=== PATIENT | female | born 1980 | race Hispanic/Latino ===

== ENCOUNTER 2020-06-04 15:35 | Inpatient (IN) | payer SELFPAY ==
[~2020-06-04] VITALS: Ht 157.5 cm; Wt 80.7 kg
[2020-06-04] MEDS ORDERED: ONDANSETRON HCL 4 MG/2 ML VIAL ONE ×2 (15:56→20:38)
[2020-06-04] MEDS ORDERED: KETOROLAC TROMETHAMINE 30MG/ML ONE (15:57)
[2020-06-04] MEDS ORDERED: DICYCLOMINE HCL 10 MG/ML 2ML AMP IM ONE (15:57)
[2020-06-04 16:27] LABS: BASOPHILS % (AUTO) 0.4 % (0.0-5.0); EOSINOPHILS % (AUTO) 0.1 % (0.0-8.0); HEMATOCRIT 32.5 % (36-48); LYMPHOCYTES % (AUTO) 15.6 % (21.0-51.0); MEAN CORPUSCULAR HGB CONC 31.7 g/dL (32.0-36.0); MEAN CORPUSCULAR VOLUME 82.1 fL (79-99); MONOCYTES % (AUTO) 5.4 % (3.0-13.0); NEUTROPHILS % (AUTO) 78.2 % (40.0-77.0); PLATELET COUNT (AUTO) 306 K/uL (130-400); RED BLOOD CELL COUNT(AUTO) 3.96 MIL/uL (4.00-5.50); RED CELL DISTRIBUTION WIDTH 15.4 % (11.0-15.5); WHITE BLOOD COUNT (AUTO) 9.3 K/uL (4.8-10.8)
[2020-06-04 16:38] LABS: INR 0.84 (0.85-1.15); PARTIAL THROMBOPLASTIN TIME 26.6 SEC (26.3-35.5); PROTHROMBIN TIME 9.1 SEC (9.6-11.6)
[2020-06-04 16:40] LABS: APPEARANCE,URINE CLEAR (CLEAR); BILIRUBIN,URINE NEGATIVE (NEGATIVE); COLOR,URINE YELLOW (YELLOW); GLUCOSE, URINE (UA) 250 mg/dL (NEGATIVE); KETONES,URINE 5 mg/dL (NEGATIVE); LEUKOCYTE ESTERASE ,URINE TRACE (NEGATIVE); NITRATE,URINE NEGATIVE (NEGATIVE); OCCULT BLOOD,URINE NEGATIVE (NEGATIVE); PROTEIN,URINE TRACE mg/dL (NEGATIVE); UROBILINOGEN,URINE 0.2 mg/dL (0.2-1.0)
[2020-06-04 16:47] LABS: BACTERIA,URINE Few /HPF (None Seen); MUCUS,URINE Few LPF (None Seen); RBC,URINE 0-1 /HPF (0-1); SQUAMOUS EPITHELIAL CELL,UR Few /HPF (0-2)
[2020-06-04 17:09] LABS: CREATININE 0.8 mg/dL (0.5-1.5); POTASSIUM 3.9 mmol/L (3.5-5.1)
[2020-06-04 17:15] LABS: ALBUMIN 3.7 g/dL (3.5-5.0); BILIRUBIN,TOTAL 0.6 mg/dL (0.2-1.0); TOTAL PROTEIN, SERUM 7.9 g/dL (6.0-8.3)
[2020-06-04] MEDS ORDERED: IOHEXOL-350 75 ML VIAL IV ONE (18:09)
[2020-06-04] MEDS ORDERED: ACETAMINOPHEN EXTRA STRENGTH 500 MG TABLET ONE (20:09)
[2020-06-04] MEDS ORDERED: MORPHINE SULFATE 4 MG/1ML SYG ONE (20:39)
[2020-06-04] MEDS ORDERED: ZOSYN 3.375GM+NS 50ML 50 ML IV ONE (20:44)
[2020-06-05] VITALS (7 sets, daily range): BP systolic 99–139; BP diastolic 55–75
[2020-06-05] MEDS ORDERED: LACTATED RINGERS 1000ML 1,000 ML IV ONE (00:53)
--- NOTE | 2020-06-05 01:00 | NUR ---
Pt in bed, oriented to room, bed, nurse call button & instructing on use of call button to call for assistance to bathroom; non skid slippers on & informing of fall risk, encouraging to call for any concerns or assistance; pt voices understanding & agrees to plan. Informing of planned interview then will call md for further orders. Pt agrees to plan and assessment.
--- NOTE | 2020-06-05 01:30 | NUR ---
Pt a/a/o x 3, reports discomfort to abd at right mid & lower quad of abdomen describing discomfort as cramping & fullness or bloating, rating discomfort at 5/10; Informing will continue interview & assessment & report to md for further orders. Pt agrees to plan. Pt moving all extremities well, steady gait noted; no edema noted or verbalized; mucus membranes pink & moist; pt calm, no guarding or rigidity noted; abdomen palpated soft slightly distended with tenderness during palpation; bowel sounds present & hypoactive to right & left lower quadrant, denies n/v at present, reports vomiting x 4 during the day & chronic constipation for the past month; denies urinary frequency or discomfort, states "it just feels like a fullness in my bladder and my abdomen" ([place]oz[place]); denies vaginal discharge or discomfort, reports LMP 05/12/2020, normally lasting 5-8days every 28-30 days, and present IUD in place for past 15 years without problems noted, reports last pap 3 years ago & history of abn pap 2001, treated; Respirations 24, unlabored & regular, breath sounds clear slightly diminished to lower lobes bilaterally, denies SOB or cough, reports history of seasonal asthma & bronchitis exacerbated by cold weather; denies neuro-muscular problems; reports slight knee joint discomfort during cold weather. Explaining md order for Zosyn to continue q 8 hours & is due at 0500. Pt agrees to plan.
[2020-06-05] MEDS ORDERED: LAXATIVE POWDER PO (02:31)
[2020-06-05] MEDS ORDERED: METF-446 PO (02:31)
[2020-06-05] MEDS ORDERED: NAPR-1000 PO (02:31)
[2020-06-05] MEDS ORDERED: CHOLESTEROL MED PO (02:31)
[2020-06-05] MEDS ORDERED: HYPERTENSIVE MED PO (02:31)
--- NOTE | 2020-06-05 02:50 | NUR ---
Dr Florez returning 0237 page. Notified of pt current status, abdominal pain continues @02/13, reports feeling bloating/fullness; constipation for past month & current blood glucose 207 via finger stick with pt hx of Type II DM on metformin po bid. Orders received for IV LR@125ml/hr, NPO, Demerol/Phenergan IM q 4 hours, & Sliding Scale I with blood sugars every 6 hours.
[2020-06-05] MEDS ORDERED: PROMETHAZINE HCL 25 MG/ML 1ML AMPULE IM PRN (03:00)
[2020-06-05] MEDS ORDERED: MEPERIDINE-PF 50 MG/ML SYG IM PRN (03:00)
[2020-06-05] MEDS: LACTATED RINGERS 1000ML 1,000 ML IV SCH ×2 (03:00→18:19)
--- NOTE | 2020-06-05 03:11 | NUR ---
Explaining md order for pain med iv, informing of desired effects & possible common side effects of narcotic, informing of planned blood glucose checks every 6 hours with treatment of high levels with insulin sub q, pt voices understanding & agrees to plan and medication administration. Addendum: 06/05/20 at 0313 by GERSON BOWEN RN RN Amended: Links added.
[2020-06-05] MEDS ORDERED: MEPERIDINE-PF 50 MG/ML SYG ONE (03:21)
[2020-06-05] MEDS ORDERED: INSULIN HUMULIN R 100 UNIT/ML 3ML ONE (03:24)
--- NOTE | 2020-06-05 03:35 | NUR ---
Reinforcing teaching on Demerol/Phenergan IM for discomfort & Regular Insulin subcutaneous for blood sugar of 207; pt voices understanding & agrees to med adm. Requesting to void & assisting to bathroom.
--- NOTE | 2020-06-05 03:45 | NUR ---
Reinforcing teaching on narcotic desired effect & possible common side effect of drowsiness, encouraging to call for assistance to bathroom due to side effects, pt agrees. Call button within reach on bed, bed down & side rails up x 2; IV pump at bedside, site without redness or edema.
[2020-06-05] MEDS ORDERED: ZOSYN 3.375GM+NS 50ML 50 ML IV ONE (04:15)
--- NOTE | 2020-06-05 04:30 | NUR ---
Pt reports discomfort to abd is less, rating it 4/10. Reports emesis, bile colored emesis noted on bed & overbed table; pt out of bed to bathroom, bed linen changed & table cleaned. [place] removed from bed & replacing flat sheet, pt returning to bed, informed of temp of 100.7, encouraging to avoid blanket, to keep flat sheet, will re assess temp in one hour, pt voices understanding & agrees to plan.
--- NOTE | 2020-06-05 04:40 | NUR ---
Reinforcing teaching on Zosyn as per orders for infection; pt voices understanding & agrees to med adm.
[2020-06-05] MEDS: INSULIN HUMULIN R 100 UNIT/ML 3ML SQ SCH ×4 (06:00→21:09)
--- NOTE | 2020-06-05 06:00 | NUR ---
Dr Florez notified of pt current temp of 100.6 after removing blankets; Order received for Tylenol ES 1 gm now.
[2020-06-05] MEDS ORDERED: ACETAMINOPHEN EXTRA STRENGTH 500 MG TABLET ONE (06:05)
--- NOTE | 2020-06-05 06:15 | NUR ---
Tylenol 1gm given po for 100.6 temp as per md orders. Explaining Tylenol, pt voices understanding & agrees to med adm. Addendum: 06/05/20 at 0636 by GERSON BOWEN RN RN Amended: Links added.
[2020-06-05] MEDS ORDERED: GENTAMICIN SULFATE 120 MG in SODIUM CHLORIDE 0.9% 100 ML IV SCH (08:45)
--- NOTE | 2020-06-05 08:45 | NUR ---
DR TROY CALLED TO RECEIVE UPDATE ON PT. INFORMED THAT TYLENOL 1 GRAM PO WAS ADMINISTERED ORDERED AT 0615. ORAL TEMP AT 0723 WAS 100.6. INFORMED OF PAIN SCALE AT 4 AND THAT PT DENIES NEED FOR PAIN MEDICATION DURING ASSESSMENT. ORDERS RECEIVED TO CANCEL ZOSYN ORDER AND START CLINDAMYCIN AND GENTAMICIN DIRECTED. ORDERS RECEIVED FOR COVID TEST. ORDERS READ BACK AND CORRECT.
[2020-06-05] MEDS: CLINDAMYCIN 900 MG/D5% WATER 50 ML IV SCH ×2 (09:35→16:38)
[2020-06-05] MEDS: GENTAMICIN 80 MG/NS 100 ML PB 100 ML IV SCH ×2 (09:36→18:17)
--- NOTE | 2020-06-05 09:40 | NUR ---
TEACHING GIVEN ON DR TROY'S ORDERS FOR ANTIBIOTICS AND FOR COVID TESTING. PT INFORMED THAT COVID TESTING IS PERFORMED ON PTS WITH COVID SYMPTOMS INCLUDING FEVER. PT VERBALLY CONSENTS TO COVID TESTING. PT DENIES QUESTIONS AT THIS TIME. PT TOLERATED NASAL SWAB WELL. NO S/S OF DISTRESS AT THIS TIME. NO COUGH PRESENT AT THIS TIME. PT DENIES SOB. WILL CONTINUE TO MONITOR.
--- NOTE | 2020-06-05 10:29 | NUR ---
DR TROY CALLED TO INFORM THAT SHE IS ON HER WAY TO HAVE PT SET UP FOR BEDSIDE REMOVAL OF IUD. ORDERS READ BACK AND CORRECT. DR TROY INFORMED THAT RAPID COVID TEST WAS NEGATIVE. PROVIDER VERBALIZED UNDERSTANDING.
--- NOTE | 2020-06-05 11:05 | NUR ---
PT ASSISTED FROM ROOM 111 TO RM 106 VIA AMBULATING FOR REMOVED OF IUD. PT DENIES FEELING DIZZY OR FAINT. PT ACCOMPANIED BY NURSE. ALL BELONGINGS REMAIN IN RM 111. PT TOLERATED TRANSPORT WELL. NO S/S OF DISTRESS. OCCASIONAL COUGH NOTED. PT REPORTS MILD COUGH DUE TO HER RM BEING COLD. WILL CONTINUE TO MONITOR.
--- NOTE | 2020-06-05 11:10 | NUR ---
SWISS CONSENTS SIGNED FOR REMOVAL OF IUD. ALL FORMS EXPLAINED TO PT. ALL QUESTIONS ANSWERED.
--- NOTE | 2020-06-05 11:15 | NUR ---
DR TROY AT BEDSIDE TO ASSESS PT. PT INFORMED OF PROCEDURE TO REMOVE IUD DUE TO ABDOMINAL PAIN AND UTERINE ABSCESS NOTED. PT VERBALIZED UNDERSTANDING. ALL QUESTIONS ANSWERED. PROCEDURE PERFORMED OF DR. TROY. Dino MCCABE RN AND AMOS LANDON, STERILE PROCESS COORDINATOR AT BEDSIDE. PT TOLERATED INTERVENTION WELL. NO S/S OF DISTRESS NOTED. PROCEDURE COMPLETE. PT ASSISTED BACK TO RM 111.
--- NOTE | 2020-06-05 11:28 | NUR ---
PT ASSISTED TO RM 111. LUNCH TRAY GIVEN. CALL LIGHT IN REACH. NO S/S OF DISTRESS
[2020-06-05] MEDS ORDERED: ACETAMINOPHEN-CODEINE 300/30MG TAB PO PRN (11:45)
[2020-06-05] MEDS ORDERED: ZOSYN 3.375GM+NS 50ML 50 ML IV SCH (12:00)
[2020-06-05] MEDS: METFORMIN HCL 500 MG TABLET PO SCH (16:38)
[2020-06-05] MEDS: ACETAMINOPHEN EXTRA STRENGTH 500 MG TABLET PO PRN ×3 (17:17→23:44)
--- NOTE | 2020-06-05 18:17 | NUR ---
INITIAL: Spoke w pt via phone. Prior to admission pt was living w a friend. She is independent w ambulation and ADLs. Does not own any DME or receive services. Per pt she plans to return back home to her prior living arrangements. She mentions that her landlord David Canela will be able to provide transportation home. She mentions if needed her cousin Zena Lees [phone] will be able to assist her. DCP for home. CM to continue to follow and wait for Md recommendations. Addendum: 06/05/20 at 1820 by KUNAL KENDALL CM Amended: Links added.
--- NOTE | 2020-06-05 19:30 | NUR ---
PATIENT RECEIVED; Patient awake alert when received with IV of LR at 125 ml/hour infusing well.Plan of care discussed with patient, she verbalizes understanding.
--- NOTE | 2020-06-05 20:25 | NUR ---
Communication: Dr. Florez asked if she wants Gentamycin peak & trough, she claimed just follow Pharmacy Protocol.
--- NOTE | 2020-06-05 20:30 | NUR ---
Communication: Dr. Florez informed of patient Temperature of 103.2 at 1625 and 100.5 at 1820 and 98.7 at 1930. she asked if Blood Culture was done. She was informed that it was done.
--- NOTE | 2020-06-05 21:15 | NUR ---
Dr. Florez: Dr. Florez informed of the Blood Culture result within 24 hours with no growth she verbalized to draw another Blood Culture if patient temperature spikes again.
--- NOTE | 2020-06-05 23:44 | NUR ---
Patient; Patient claimed. [place]." Temperature checked 101.7, Cold packs applied to Forehead cold towels applied to both axilla. Patient advice to drink more fluids and uncover herself.
--- NOTE | 2020-06-06 00:30 | NUR ---
FAN BLADE ALIGNER; FAN BLADE ALIGNER at bedside to draw blood for blood culture.
[2020-06-06] MEDS: CLINDAMYCIN 900 MG/D5% WATER 50 ML IV SCH ×4 (00:33→20:22)
--- NOTE | 2020-06-06 01:25 | NUR ---
Patient; Patient transferred to room 118 via wheelchair a room with negative pressure. Patient informed and she verbalizes understanding.
[2020-06-06] MEDS: GENTAMICIN 80 MG/NS 100 ML PB 100 ML IV SCH ×3 (02:32→17:35)
[2020-06-06 03:55] VITALS: BP 104/66
[2020-06-06] MEDS: LACTATED RINGERS 1000ML 1,000 ML IV SCH ×3 (06:11→19:00)
--- NOTE | 2020-06-06 07:45 | NUR ---
ASSESSMENT: RECEIVED UP TO BR AND VOIDED LG AMTS OF URINE. DENIES PAIN OR DISCOMFORT WITH URINATION. EXPLAINED POC AND UNDERSTANDING VERBALIZED. PT IN ISOLATION PENDING HART VIRUS PCR RESULTS. ANTIGEN NEGATIVE. PT HART POSITIVE IN MARCH. NOTED DRY COUGH. DENIES RESP DIFFICULTY, NO SOB NOTED. CALL WHITNEY AT HER SIDE.
[2020-06-06] MEDS: METFORMIN HCL 500 MG TABLET PO SCH ×2 (07:46→16:22)
[2020-06-06 08:00] VITALS: BP 119/67
--- NOTE | 2020-06-06 08:28 | NUR ---
FEVER: T 101.5, MEDICATED WITH MOTRIN 800MG PO, NATALIE WELL. UP IN CHAIR EATING 1800 ADA DIET
[2020-06-06] MEDS: IBUPROFEN 800 MG TAB PO PRN ×2 (08:29→20:24)
--- NOTE | 2020-06-06 09:06 | NUR ---
HYGEINE: TAKING SHOWER
--- NOTE | 2020-06-06 10:00 | NUR ---
ACTIVITY: UN IN CHAIR, NO COUGH NOTED. STATES FEELS MUCH BETTER. DENIES ABD PAIN.
--- NOTE | 2020-06-06 10:16 | NUR ---
SW unable to meet w/pt. Low Income Packet provided to RN for pt. as requested by weekend CM.
[2020-06-06 11:23] VITALS: BP 111/68
[2020-06-06] MEDS: INSULIN HUMULIN R 100 UNIT/ML 3ML SQ SCH ×3 (11:32→20:17)
--- NOTE | 2020-06-06 12:48 | NUR ---
nutrition: NATALIE 100% OF LUNCH
--- NOTE | 2020-06-06 15:00 | NUR ---
ELIMINATION: PT STATES VOIDING FREQUENTLY AND HAVING SM AMTS OF SOFT BM'S.
[2020-06-06 15:02] VITALS: BP 114/63
--- NOTE | 2020-06-06 15:07 | NUR ---
ACTIVITY: AMB IN ROOM, NOTED VERY LITTLE COUGHING THIS PM, PT STATES SHE COUGHS MOSTLY IN THE MORNINGS AND WHEN SHE GETS COLD.
--- NOTE | 2020-06-06 16:54 | NUR ---
rest: resting in bed.
--- NOTE | 2020-06-06 18:03 | NUR ---
ACTIVITY: AMB IN ROOM, TALKATIVE AND CHEERFUL.
--- NOTE | 2020-06-06 19:21 | NUR ---
REPORT: REPORT GIVEN TO Dave SHARPE RN.
--- NOTE | 2020-06-06 19:30 | NUR ---
Shift Change Pt was seen standing beside the bed during rounds. Verbalized she just got out from the restroom and she's been having frequency of urination. Denies any feeling of discomfort. Still with PIV site to left hand #20g with an IVF of LR 1L at 125 ml/hr via infusion pump.No apparent distress noted.
[2020-06-06 19:50] VITALS: BP 131/76
--- NOTE | 2020-06-06 20:24 | NUR ---
TEMP: 101.9 per oral Motrin 800 mg po q8h prn for fever as ordered given. Room temp adjusted from 76F to approx 72F per pt request. Distress not noted.
--- NOTE | 2020-06-06 21:25 | NUR ---
Temp rechecked: 101.3 Pt was sitting at the chair watching TV. Offered cold packs to for comfort. Room temp at this time is at 76F still, though its been adjusted already at 1950. Pt wants AC at 72F. Pt assisted to lie down in bed before machine sign writer left the room. Distress /discomfort not noted.
[2020-06-06 23:45] VITALS: BP 106/59
--- NOTE | 2020-06-06 23:45 | NUR ---
Routine VS checked done Patient was asleep , but woke up with VS monitoring. Temp at this time was 98.3, oral. Room temp was 75F. Noticed she was not using the thin blanket anymore. Verbalized room still hot. Was told that engineering dept will be informed in AM. Distress not noted. Needs attended.
[2020-06-07] MEDS: GENTAMICIN 80 MG/NS 100 ML PB 100 ML IV SCH ×3 (01:36→17:46)
[2020-06-07] MEDS: LACTATED RINGERS 1000ML 1,000 ML IV SCH (03:30)
[2020-06-07 03:40] VITALS: BP 106/69
--- NOTE | 2020-06-07 04:00 | NUR ---
PT ASLEEP AND RESTING COMFORTABLY.
--- NOTE | 2020-06-07 06:00 | NUR ---
Pt. fully awake and at the restroom defecating. BS checked with a result of 128 mg/dl.
[2020-06-07] MEDS: INSULIN HUMULIN R 100 UNIT/ML 3ML SQ SCH ×4 (06:03→22:29)
--- NOTE | 2020-06-07 06:10 | NUR ---
Temp rechecked: 98 F per oral. Denies feeling of discomfort. NAD.
[2020-06-07] MEDS: METFORMIN HCL 500 MG TABLET PO SCH (07:55)
[2020-06-07] MEDS: CLINDAMYCIN 900 MG/D5% WATER 50 ML IV SCH ×3 (07:56→21:42)
[2020-06-07 08:10] VITALS: BP 122/77
[2020-06-07] MEDS: ACETAMINOPHEN EXTRA STRENGTH 500 MG TABLET PO PRN ×2 (10:58→18:35)
[2020-06-07 11:45] VITALS: BP 126/82
[2020-06-07 11:47] LABS: MEAN CORPUSCULAR HEMOGLOBIN 26.2 pg (27.0-33.0); MEAN CORPUSCULAR HGB CONC 31.5 g/dL (32.0-36.0); MEAN CORPUSCULAR VOLUME 83.1 fL (79-99); RED BLOOD CELL COUNT(AUTO) 3.13 MIL/uL (4.00-5.50); RED CELL DISTRIBUTION WIDTH 15.7 % (11.0-15.5); WHITE BLOOD COUNT (AUTO) 9.9 K/uL (4.8-10.8)
[2020-06-07 11:59] LABS: HEMOGLOBIN A1C 9.7 % (4.0-6.0)
[2020-06-07] MEDS ORDERED: BISACODYL 10 MG SUPP.RECT RC ONE (12:12)
[2020-06-07] MEDS: DOCUSATE SODIUM 100 MG CAP PO SCH ×2 (14:39→21:42)
[2020-06-07] MEDS ORDERED: LACTULOSE 20 GM/30 ML UDCUP PO PRN (16:45)
[2020-06-07 18:15] VITALS: BP 133/78
[2020-06-07 20:00] VITALS: BP 122/72
[2020-06-07] MEDS ORDERED: INSULIN GLARGINE 100 UNITS/ML 10 ML VIAL SQ SCH (21:00)
[2020-06-07] MEDS: INSULIN GLARGINE 100 UNITS/ML 10 ML VIAL SQ SCH (21:44)
[2020-06-07 23:40] VITALS: BP 129/79
[2020-06-08] MEDS: GENTAMICIN 80 MG/NS 100 ML PB 100 ML IV SCH ×2 (01:59→10:35)
[2020-06-08] MEDS: BISACODYL 10 MG SUPP.RECT RC PRN ×2 (01:59→18:53)
[2020-06-08 04:10] VITALS: BP 132/82
[2020-06-08] MEDS: IBUPROFEN 800 MG TAB PO PRN ×2 (04:46→20:59)
[2020-06-08 04:48] LABS: BASOPHILS % (AUTO) 0.2 % (0.0-5.0); EOSINOPHILS % (AUTO) 0.7 % (0.0-8.0); HEMATOCRIT 24.6 % (36-48); LYMPHOCYTES % (AUTO) 11.2 % (21.0-51.0); MEAN CORPUSCULAR HEMOGLOBIN 26.2 pg (27.0-33.0); MEAN CORPUSCULAR HGB CONC 31.7 g/dL (32.0-36.0); MEAN CORPUSCULAR VOLUME 82.6 fL (79-99); NEUTROPHILS % (AUTO) 81.4 % (40.0-77.0); PLATELET COUNT (AUTO) 299 K/uL (130-400); RED BLOOD CELL COUNT(AUTO) 2.98 MIL/uL (4.00-5.50); RED CELL DISTRIBUTION WIDTH 15.6 % (11.0-15.5); WHITE BLOOD COUNT (AUTO) 9.2 K/uL (4.8-10.8)
[2020-06-08 04:53] LABS: CREATININE 0.7 mg/dL (0.5-1.5); POTASSIUM 3.4 mmol/L (3.5-5.1)
--- NOTE | 2020-06-08 07:50 | NUR ---
OUT OF [employer]OL HOURS CARE WORKER CONSULT DR. ROSS AT BEDSIDE TO OBSERVE PT'S BLOOD SUGARS. STATED HE WOULD MAKE CHANGES TO MEDS IF NEEDED
[2020-06-08] MEDS: DOCUSATE SODIUM 100 MG CAP PO SCH ×2 (08:20→20:59)
[2020-06-08] MEDS: CLINDAMYCIN 900 MG/D5% WATER 50 ML IV SCH (08:20)
[2020-06-08] MEDS: INSULIN HUMULIN R 100 UNIT/ML 3ML SQ SCH ×7 (08:21→21:04)
[2020-06-08 08:40] VITALS: BP 136/82
--- NOTE | 2020-06-08 08:45 | NUR ---
MARIXA ROUNDING DR. TROY HERE TO SEE PT STATUS. NEW ORDERS RECEIVED
--- NOTE | 2020-06-08 09:24 | NUR ---
ID CONSULT DR. CRUZ INFORMED OF CONSULT. PT PLACED ON HIS CENSUS
--- NOTE | 2020-06-08 10:55 | NUR ---
ID CONSULT ROUNDING DR. CRUZ AT BEDSIDE TO ASSESS AND TALK TO PT.
[2020-06-08 12:15] VITALS: BP 114/72
[2020-06-08] MEDS: CEFTRIAXONE SODIUM 2 GM VIAL IVP SCH (13:00)
[2020-06-08] MEDS: LACTATED RINGERS 1000ML 1,000 ML IV SCH (14:00)
[2020-06-08] MEDS: METRONIDAZOLE 500MG/100ML BAG 100 ML IV SCH ×2 (14:15→21:28)
[2020-06-08 16:15] VITALS: BP 128/68
[2020-06-08] MEDS ORDERED: CLINDAMYCIN 900 MG/D5% WATER 50 ML IV SCH (17:00)
[2020-06-08 20:15] VITALS: BP 135/70
[2020-06-08] MEDS: INSULIN GLARGINE 100 UNITS/ML 10 ML VIAL SQ SCH (21:02)
[2020-06-09 00:10] VITALS: BP 123/69
[2020-06-09 04:10] VITALS: BP 110/69
[2020-06-09] MEDS: METRONIDAZOLE 500MG/100ML BAG 100 ML IV SCH ×3 (05:58→22:02)
[2020-06-09] MEDS: LACTATED RINGERS 1000ML 1,000 ML IV SCH ×2 (05:58→19:46)
[2020-06-09] MEDS: INSULIN HUMULIN R 100 UNIT/ML 3ML SQ SCH ×7 (07:30→21:00)
--- NOTE | 2020-06-09 08:10 | NUR ---
DR. ROSS AT BEDSIDE TO ASSESS AND TALK TO PT. NEW ORDERS RECEIVED FOR INSULIN CHANGES.
[2020-06-09] MEDS: DOCUSATE SODIUM 100 MG CAP PO SCH ×2 (08:22→21:10)
[2020-06-09 08:30] VITALS: BP 134/76
[2020-06-09] MEDS: CEFTRIAXONE SODIUM 2 GM VIAL IVP SCH (12:49)
[2020-06-09 13:00] VITALS: BP 139/76
--- NOTE | 2020-06-09 13:13 | NUR ---
RE: TUBAL OVARIAN ABSCESS DRAINAGE IMAGES REVIEWED BY DR Heide HERNÁNDEZ. MINIMAL FLUID SEEN FOR DRAINAGE. AREA OF INTEREST LOOKS SOLID BUT DIFFICULT TO BIOPSY PERCUTANEOUSLY BY RADIOLOGIST. CANCEL PROCEDURE BY RADIOLOGY. PROCEDURE OUTCOME REPORTED TO Jesus PIERCE RN.
[2020-06-09] MEDS ORDERED: MAGNESIUM CITRATE 296 ML SOLUTION PO SCH (13:30)
[2020-06-09] MEDS ORDERED: VANCOMYCIN PROTOCOL PER PHARMACY IV SCH (13:30)
[2020-06-09] MEDS: IBUPROFEN 800 MG TAB PO PRN (13:45)
[2020-06-09 14:30] VITALS: BP_SYST 132; BP_DIAS 80; BP_DIAS 85
[2020-06-09] MEDS: UNASYN 3GM+NS 100ML 100 ML IV SCH ×2 (14:57→19:45)
[2020-06-09] MEDS: VANCOMYCIN 1GM+NS 250ML 250 ML IV SCH (15:50)
--- NOTE | 2020-06-09 16:30 | NUR ---
DR. TROY AT BEDSIDE TO ASSESS AND TALK TO PT. POC DISCUSSED FOR SURGERY IN THE MORNING. PT'S QUESTIONS ANSWERED AND VERBALIZED UNDERSTANDING.
[2020-06-09 20:14] VITALS: BP 135/97
--- NOTE | 2020-06-09 20:14 | NUR ---
Activity: Patient sitting at bedside chair, no complaints of pain, Plan of care discussed she verbalizes understanding. IV of LR infusing at 125 ml/hour. Advice to call if needed.
[2020-06-09] MEDS ORDERED: INSULIN GLARGINE 100 UNITS/ML 10 ML VIAL SQ SCH (21:00)
--- NOTE | 2020-06-09 21:30 | NUR ---
Fleets enema given.
[2020-06-09] MEDS: INSULIN GLARGINE 100 UNITS/ML 10 ML VIAL SQ SCH (21:34)
[2020-06-10] VITALS (26 sets, daily range): BP systolic 114–149; BP diastolic 67–82
[2020-06-10] MEDS: UNASYN 3GM+NS 100ML 100 ML IV SCH ×4 (01:21→19:58)
[2020-06-10] MEDS: VANCOMYCIN 1GM+NS 250ML 250 ML IV SCH ×2 (02:23→15:03)
--- NOTE | 2020-06-10 04:30 | NUR ---
FLEETS; Fleets enema administered per rectum with small residue of Bowel movement light yellow in color.
[2020-06-10 04:31] LABS: HEMATOCRIT 28.5 % (36-48); MEAN CORPUSCULAR HEMOGLOBIN 25.9 pg (27.0-33.0); MEAN CORPUSCULAR HGB CONC 31.6 g/dL (32.0-36.0); MEAN CORPUSCULAR VOLUME 81.9 fL (79-99); RED BLOOD CELL COUNT(AUTO) 3.48 MIL/uL (4.00-5.50); RED CELL DISTRIBUTION WIDTH 15.8 % (11.0-15.5)
[2020-06-10 05:05] LABS: ALBUMIN 2.7 g/dL (3.5-5.0); BILIRUBIN,TOTAL 0.4 mg/dL (0.2-1.0); CREATININE 0.9 mg/dL (0.5-1.5); POTASSIUM 3.9 mmol/L (3.5-5.1); TOTAL PROTEIN, SERUM 7.7 g/dL (6.0-8.3)
[2020-06-10] MEDS: METRONIDAZOLE 500MG/100ML BAG 100 ML IV SCH ×3 (05:37→21:55)
--- NOTE | 2020-06-10 07:08 | NUR ---
Dr. Florez; Dr. Florez at bedside talk to patient POC before she was wheeled via bed to OR accompanied by 2 OR nurses.
[2020-06-10] MEDS ORDERED: SUCCINYLCHOLINE CHLORIDE 20 MG/ML 10 ML VIAL ONE (07:16)
[2020-06-10] MEDS ORDERED: PROPOFOL 10 MG/ML 20ML VIAL IV ONE (07:16)
[2020-06-10] MEDS ORDERED: LIDOCAINE PF 2% 5ML ABBOJECT ONE (07:16)
[2020-06-10] MEDS ORDERED: FENTANYL CITRATE PF 50 MCG/1 ML 2ML VIAL ONE (07:16)
[2020-06-10] MEDS ORDERED: MIDAZOLAM HCL 1 MG/ML 2ML VIAL ONE (07:26)
[2020-06-10] MEDS ORDERED: ROCURONIUM 10MG/1ML SYR 10 MG/ML ML ONE (07:26)
[2020-06-10] MEDS: INSULIN HUMULIN R 100 UNIT/ML 3ML SQ SCH ×10 (07:30→22:34)
[2020-06-10] MEDS ORDERED: NEOSTIGMINE 5MG/5ML SYR IV ONE (07:35)
[2020-06-10] MEDS ORDERED: GLYCOPYRROLATE 1 MG/5 ML SYRINGE ONE (07:35)
[2020-06-10] MEDS ORDERED: ONDANSETRON HCL 4 MG/2 ML VIAL ONE (07:35)
[2020-06-10] MEDS ORDERED: MEPERIDINE-PF 25 MG/ML SYG ONE ×2 (08:55→09:02)
[2020-06-10] MEDS: DOCUSATE SODIUM 100 MG CAP PO SCH ×2 (09:00→19:53)
[2020-06-10] MEDS ORDERED: DOCUSATE SODIUM 100 MG CAP PO PRN (10:15)
[2020-06-10] MEDS ORDERED: IBUPROFEN 600 MG TABLET PO PRN (10:15)
[2020-06-10] MEDS ORDERED: MEPERIDINE-PF 75 MG/ML SYG IM PRN (10:15)
[2020-06-10] MEDS ORDERED: BISACODYL 10 MG SUPP.RECT RC PRN (10:15)
[2020-06-10] MEDS ORDERED: PROMETHAZINE HCL 25 MG/ML 1ML AMPULE IM PRN ×2 (10:15)
[2020-06-10] MEDS ORDERED: ONDANSETRON HCL 4 MG/2 ML VIAL IV PRN (10:15)
[2020-06-10] MEDS ORDERED: ONDANSETRON HCL 4 MG/2 ML VIAL IVP PRN (10:15)
[2020-06-10] MEDS ORDERED: NALOXONE HCL 0.4 MG/1 ML ML IVP PRN (10:15)
[2020-06-10] MEDS ORDERED: MORPHINE-NS 50 MG/50 ML 50 ML IV PRN (10:15)
[2020-06-10] MEDS ORDERED: DIPHENHYDRAMINE HCL 25 MG CAPSULE PO PRN (10:15)
[2020-06-10] MEDS ORDERED: DiphenhydrAMINE HCL 50 MG/ML VIAL IV PRN (10:15)
[2020-06-10] MEDS ORDERED: ACETAMINOPHEN-CODEINE 300/30MG TAB PO PRN (10:15)
[2020-06-10] MEDS: LACTATED RINGERS 1000ML 1,000 ML IV SCH ×4 (10:20→22:32)
[2020-06-10] MEDS ORDERED: DEXTROSE 50%-WATER 50 ML DISP.SYRIN IV PRN (11:45)
[2020-06-10] MEDS ORDERED: GLUCAGON 1MG KIT 1 MG ML IM PRN (11:45)
--- NOTE | 2020-06-10 13:10 | NUR ---
Dr. Collins in to see pt, no new orders received.
[2020-06-10] MEDS: INSULIN GLARGINE 100 UNITS/ML 10 ML VIAL SQ SCH (21:00)
[2020-06-10] MEDS: ACETAMINOPHEN EXTRA STRENGTH 500 MG TABLET PO PRN (21:03)
[2020-06-11] VITALS (7 sets, daily range): BP systolic 99–144; BP diastolic 54–86
[2020-06-11] MEDS: UNASYN 3GM+NS 100ML 100 ML IV SCH ×4 (01:57→19:54)
--- NOTE | 2020-06-11 03:00 | NUR ---
ELIZABETH MATIAS DRAWN BY LAB WITH AM LABS.PT. RESTING QUIETLY.
[2020-06-11] MEDS: VANCOMYCIN 1GM+NS 250ML 250 ML IV SCH (03:01)
[2020-06-11 03:16] LABS: BASOPHILS % (AUTO) 0.2 % (0.0-5.0); EOSINOPHILS % (AUTO) 0.3 % (0.0-8.0); LYMPHOCYTES % (AUTO) 13.5 % (21.0-51.0); MEAN CORPUSCULAR HEMOGLOBIN 26.1 pg (27.0-33.0); MEAN CORPUSCULAR HGB CONC 31.7 g/dL (32.0-36.0); MEAN CORPUSCULAR VOLUME 82.2 fL (79-99); MONOCYTES % (AUTO) 4.5 % (3.0-13.0); NEUTROPHILS % (AUTO) 80.8 % (40.0-77.0); PLATELET COUNT (AUTO) 488 K/uL (130-400); RED BLOOD CELL COUNT(AUTO) 3.53 MIL/uL (4.00-5.50); RED CELL DISTRIBUTION WIDTH 15.9 % (11.0-15.5); WHITE BLOOD COUNT (AUTO) 11.1 K/uL (4.8-10.8)
[2020-06-11 03:30] LABS: ALBUMIN 2.3 g/dL (3.5-5.0); BILIRUBIN,TOTAL 0.5 mg/dL (0.2-1.0); CREATININE 0.8 mg/dL (0.5-1.5)
--- NOTE | 2020-06-11 04:30 | NUR ---
RESULT OF VANCO TROUGH OF 6.2 RECEIVED AND FAXED TO PHARMACY.
[2020-06-11] MEDS: INSULIN HUMULIN R 100 UNIT/ML 3ML SQ SCH ×7 (06:00→17:27)
[2020-06-11] MEDS: METRONIDAZOLE 500MG/100ML BAG 100 ML IV SCH ×3 (06:04→21:50)
--- NOTE | 2020-06-11 06:50 | NUR ---
HUERTAS CATHETER DC'D, HUGO CARE DONE. PT INST TO CALL FOR ASSIST BEFORE GETTING OUT OF BED, VERBALIZED UNDERSTANDING. Addendum: 06/11/20 at 0724 by TABBY GALVAN RN RN Amended: Links added.
--- NOTE | 2020-06-11 08:05 | NUR ---
pericare done, incisional dressing removed, incision is dry and intact with kimmie, applied abdominal binder. assisted to bedside chair, pt tolerated well. Addendum: 06/11/20 at 0915 by MARVIN CHUNG RN Amended: Links added.
[2020-06-11] MEDS ORDERED: COMPOUND IV REFRIGERATED 1 EACH IVSOLN MISC PRN (08:15)
[2020-06-11] MEDS ORDERED: HYDROCODONE/ACETAMINOPHEN 5/325 MG TAB PO PRN (09:45)
--- NOTE | 2020-06-11 09:50 | NUR ---
ambulated in the room, ambulated to restroom, voided 300ml, pericare done, and back to chair. Addendum: 06/11/20 at 1012 by MARVIN CHUNG RN Amended: Links added.
[2020-06-11] MEDS: SIMETHICONE 80 MG TAB.CHEW PO PRN ×3 (11:25→20:51)
[2020-06-11] MEDS: ACETAMINOPHEN-CODEINE 300/30MG TAB PO PRN ×2 (11:26→16:59)
[2020-06-11] MEDS: DOCUSATE SODIUM 100 MG CAP PO SCH (11:26)
[2020-06-11] MEDS: IBUPROFEN 800 MG TAB PO PRN ×2 (13:06→20:52)
[2020-06-11] MEDS: VANCOMYCIN 1.25 GM in SODIUM CHLORIDE 0.9% 250 ML IV SCH (14:58)
[2020-06-11] MEDS: INSULIN GLARGINE 100 UNITS/ML 10 ML VIAL SQ SCH (21:00)
--- NOTE | 2020-06-11 21:00 | NUR ---
INSULIN 10 UNITS LANTUS GIVEN PRIOR TO ORDER CHANGE
[2020-06-11] MEDS ORDERED: INSULIN GLARGINE 100 UNITS/ML 10 ML VIAL SQ SCH (22:00)
[2020-06-12] MEDS: UNASYN 3GM+NS 100ML 100 ML IV SCH ×4 (01:26→19:22)
[2020-06-12] MEDS: VANCOMYCIN 1.25 GM in SODIUM CHLORIDE 0.9% 250 ML IV SCH ×2 (02:50→15:04)
[2020-06-12 03:15] VITALS: BP 125/69
[2020-06-12 05:12] LABS: BASOPHILS % (AUTO) 0.3 % (0.0-5.0); EOSINOPHILS % (AUTO) 1.9 % (0.0-8.0); HEMATOCRIT 26.1 % (36-48); LYMPHOCYTES % (AUTO) 12.6 % (21.0-51.0); MEAN CORPUSCULAR HEMOGLOBIN 25.9 pg (27.0-33.0); MEAN CORPUSCULAR HGB CONC 31.4 g/dL (32.0-36.0); MEAN CORPUSCULAR VOLUME 82.6 fL (79-99); MONOCYTES % (AUTO) 5.2 % (3.0-13.0); PLATELET COUNT (AUTO) 491 K/uL (130-400); RED BLOOD CELL COUNT(AUTO) 3.16 MIL/uL (4.00-5.50); RED CELL DISTRIBUTION WIDTH 15.5 % (11.0-15.5); WHITE BLOOD COUNT (AUTO) 10.7 K/uL (4.8-10.8)
[2020-06-12 05:30] LABS: ALBUMIN 2.1 g/dL (3.5-5.0); BILIRUBIN,TOTAL 0.4 mg/dL (0.2-1.0); CREATININE 0.9 mg/dL (0.5-1.5); TOTAL PROTEIN, SERUM 6.6 g/dL (6.0-8.3)
[2020-06-12] MEDS: METRONIDAZOLE 500MG/100ML BAG 100 ML IV SCH ×3 (06:05→21:11)
[2020-06-12] MEDS: INSULIN HUMULIN R 100 UNIT/ML 3ML SQ SCH ×7 (07:30→21:00)
[2020-06-12] MEDS: DOCUSATE SODIUM 100 MG CAP PO SCH ×2 (07:59→21:09)
[2020-06-12 08:00] VITALS: BP 131/76
[2020-06-12] MEDS: IBUPROFEN 800 MG TAB PO PRN ×2 (08:00→18:14)
--- NOTE | 2020-06-12 08:00 | NUR ---
DR. JIMÉNEZ ROUNDED ON PATIENT AT THIS TIME AND PATIENT VERBALIZED DOING BETTER. WHEN ASKED IF READY TO BE DISCHARGED TO HOME IN A.M. VERBALIZED SHE IS READY. PIV INFUSING AND IV PATENT. DENIES ANY DIZZINESS ON ABMULATION AND DR. JIMÉNEZ WAS MADE AWARE OF LOW POTASSIUM AND PROTOCOL WAS ORDERED BUT HAD ALREADY BEEN ORDERED BY HOSPITALIST. 6 UNITS OF INSULIN WERE ADMINISTERED FOR AC BREAKFAST. PATIENT WAS ORIENTED INTO PLAN OF CARE FOR THE DAY AND INDICATED ON ASSESSMENT THAT SHE HAD JUST STARTED TO PASS GAS.
[2020-06-12] MEDS ORDERED: POTASSIUM CHLORIDE 20MEQ/100ML 100 ML IV PRN ×2 (08:30)
[2020-06-12] MEDS ORDERED: POTASSIUM CHLORIDE 10% ELIXIR 20 MEQ/15 ML UDCUP PO PRN (08:30)
--- NOTE | 2020-06-12 10:00 | NUR ---
DR. CRUZ ROUNDED AND PATIENT WAS IN BATHROOM. WAS MADE AWARE OF DR. JIMÉNEZ INDICATED POSSIBLE DISCHARGE IN A.M. DR. CRUZ LEFT AND INDICATED HE WANTS PATIENT TO GO ON PO ANTIBIOTICS. PATIENT WAS MADE AWARE OF DR. CRUZ'S VISIT AND INSTRUCTIONS ON NEED TO BE DISCHARGED ON PO ANTIBIOTICS.
--- NOTE | 2020-06-12 11:40 | NUR ---
GLUCOSE CHECK DONE AND WAS 216. PATIENT WAS GIVEN THE 6 UNITS OF REGULAR INSULIN AND AN ADDITIONAL 3 UNITS FROM SLIDING SCALE ORDERED. INDICATED WANTING INSULIN INJECTION ON LEFT ARM.
[2020-06-12 12:00] VITALS: BP 126/67
[2020-06-12] MEDS: POTASSIUM CHLORIDE 20 MEQ ERTAB PO PRN ×4 (12:42→22:07)
[2020-06-12] MEDS: LACTATED RINGERS 1000ML 1,000 ML IV SCH ×2 (15:30→19:00)
--- NOTE | 2020-06-12 15:35 | NUR ---
DR. ROSS CHANGED INSULIN ORDERS FOR EVENING DOSAGE. TO 8 UNITS TIDAC AND 15 UNITS OF LANTUS AT HS.
[2020-06-12 16:00] VITALS: BP 115/77
--- NOTE | 2020-06-12 18:00 | NUR ---
PATIENT WAS UP AND TOOK SHOWER AND TOLERATED ACTIVITY WELL. STATES DOING WELL. ENCOURAGED TO WALK IN ROOM.
--- NOTE | 2020-06-12 18:30 | NUR ---
DR. ISA MENDES ROUNDED AND UPDATE GIVEN. PLAN IS TO DISCHARGE ON 06/13/2020. WILL GO HOME ON ANTIBIOTICS PER PLAN.
--- NOTE | 2020-06-12 19:45 | NUR ---
PATIENT WAS ASSESSED AND UNASYN HUNG. TEMP WAS 99.1 AND PATIENT ENCOURAGED TO WALK AND USE INCENTIVE SPIROMETRY. INDICATED UNDERSTANDING. IV PATENT.
[2020-06-12 19:53] VITALS: BP 125/75
[2020-06-12] MEDS ORDERED: INSULIN GLARGINE 100 UNITS/ML 10 ML VIAL SQ SCH (21:00)
--- NOTE | 2020-06-12 22:00 | NUR ---
PATIENT RESTING QUIETLY WITH LIGHTS OFF. PATIENT IS STABLE.
[2020-06-13 00:10] VITALS: BP 126/73
--- NOTE | 2020-06-13 00:10 | NUR ---
STATUS PATIENT RESTING QUIETLY, AFEBRILE, NO CONCERNS VOICED, ABD SOFT, PASSING FLATUS, NO BM, VOIDING WITHOUT DIFFICULTY, ABD INCISION, SMILEY INTACT, ENCOURAGED TO CALL NURSE FOR ANY NEEDS Addendum: 06/13/20 at 0210 by SHANELLE SPENCE LVN Amended: Links added.
[2020-06-13] MEDS: UNASYN 3GM+NS 100ML 100 ML IV SCH ×2 (01:44→07:44)
[2020-06-13 03:10] VITALS: BP 129/82
[2020-06-13 03:40] LABS: BASOPHILS % (AUTO) 0.4 % (0.0-5.0); EOSINOPHILS % (AUTO) 2.3 % (0.0-8.0); HEMATOCRIT 27.4 % (36-48); LYMPHOCYTES % (AUTO) 20.6 % (21.0-51.0); MEAN CORPUSCULAR HEMOGLOBIN 25.7 pg (27.0-33.0); MEAN CORPUSCULAR HGB CONC 30.3 g/dL (32.0-36.0); MEAN CORPUSCULAR VOLUME 84.8 fL (79-99); MONOCYTES % (AUTO) 5.2 % (3.0-13.0); PLATELET COUNT (AUTO) 466 K/uL (130-400); RED BLOOD CELL COUNT(AUTO) 3.23 MIL/uL (4.00-5.50); RED CELL DISTRIBUTION WIDTH 16.1 % (11.0-15.5); WHITE BLOOD COUNT (AUTO) 8.5 K/uL (4.8-10.8)
[2020-06-13 03:59] LABS: ALBUMIN 2.2 g/dL (3.5-5.0); BILIRUBIN,TOTAL 0.2 mg/dL (0.2-1.0); CREATININE 0.8 mg/dL (0.5-1.5); POTASSIUM 3.7 mmol/L (3.5-5.1); TOTAL PROTEIN, SERUM 6.7 g/dL (6.0-8.3)
[2020-06-13] MEDS: METRONIDAZOLE 500MG/100ML BAG 100 ML IV SCH (06:06)
[2020-06-13 07:40] VITALS: BP 135/88
--- NOTE | 2020-06-13 07:40 | NUR ---
ASSESSMENT: RECEIVED RESTING IN BED, AWAKE AND ALERT. DENIES PAIN, ABD SOFT WITH MIDLINE INCISION WITH SMILEY D&I. STATES HAD BM THIS AM AND PASSING GAS. VOIDING WITH NO PROBLEMS. STATES SHE IS ON HER PERIOD, WEARING HUGO PAD WITH SM AMTS VAG BLEEDING. ABD BINDER ON. IV FLUIDS INF WELL. EXPLAINED POC AND UNDERSTANDING VERBALIZED. CALL WHITNEY AT HER SIDE. ENCOURAGED TO AMBULATE MORE. ENCOURAGED INCENTIVE SPIROMETRY AND INHALED TO 1000.
[2020-06-13] MEDS: DOCUSATE SODIUM 100 MG CAP PO SCH (07:44)
[2020-06-13] MEDS: INSULIN HUMULIN R 100 UNIT/ML 3ML SQ SCH ×3 (07:52→11:19)
--- NOTE | 2020-06-13 08:59 | NUR ---
NUTRITION: UP IN CHAIR NATALIE 100% OF 2000 ADA DIET.
--- NOTE | 2020-06-13 09:20 | NUR ---
HYGEINE: TAKING SHOWER.
--- NOTE | 2020-06-13 10:00 | NUR ---
ASSESSMENT: DR JIMÉNEZ ASSESSED PT AND DISCUSSED POC FOR DISCHARGE HOME AND PT VERBALIZES UNDERSTANDING AND AGREES WITH POC.
[2020-06-13 11:09] VITALS: BP 132/75
[2020-06-13] MEDS: ACETAMINOPHEN-CODEINE 300/30MG TAB PO PRN (11:15)
--- NOTE | 2020-06-13 11:55 | NUR ---
DISCHARGE: DR CRUZ HERE AND SBAR REPORT GIVEN AND ORDERS FOR DISCHARGE RECEIVED. PT MADE AWARE.
--- NOTE | 2020-06-13 12:27 | NUR ---
DISCHARGE: DR ISA MARTÍNEZ HERE AND SBAR REPORT GIVEN AND ORDERS FOR DISCHARGE RECEIVED
--- NOTE | 2020-06-13 13:20 | NUR ---
DISCHARGE: DISCHARGE TEACHING DONE ON SELF CARE WITH DIABETES, ANEMIA, POST OP SURGICAL CARE,POST EXP LAP, RSO,LS, INCISION CARE, DIETS TO FOLLOW. MONITOR BLOOD SUGARS AND ADJUST CARBOHYDRATE CONSUMPTION TO MAINTAIN BLOOD SUGARS WITHIN NORMAL LIMITS AND REPORT ANY ABNORMAL RESULTS TO HER PROVIDER. REVIEWED RX'S FOR TYLENOL #3 PRN, COLACE, IBUPROFEN, FERROUS SULFATE, AUGMENTIN AND TO RESUME HOME MEDS. TO CALL TOMORROW AND MAKE APPT WITH DR TROY AND HER PROVIDER FOR [address] DUBON ( BELT LOOP CUTTER) SUGGESTED FOR HER TO FOLLOW UP WITH HIM PRN IF SHE WISHES. UNDERSTANDING VERBALIZED AND COPIES OF ALL INSTRUCTIONS GIVEN TO PT.
--- NOTE | 2020-06-13 14:00 | NUR ---
DISCHARGE: DISCHARGED HOME VIA W/C TO PRIVATE CAR WITH .
== END 2020-06-13 14:00 | disposition home or self-care (01) | DRG 853 ==
LOC: EDH 15:35 → EDHIP 15:36 → WSH 15:37
PROVIDERS: ADMIT Obstetrics & Gynecology; ATTEND Obstetrics & Gynecology
PROC: 0UJ80ZZ Inspection of Fallopian Tube, Open Approach (ICD-10-PCS; principal; 2020-06-10 07:10)
PROC: 0UT70ZZ Resection of Bilateral Fallopian Tubes, Open Approach (ICD-10-PCS; 2020-06-10 07:10)
PROC: 0UT00ZZ Resection of Right Ovary, Open Approach (ICD-10-PCS; 2020-06-10 07:10)
DX: A41.89 Other specified sepsis (principal); U07.1 COVID-19; N73.9 Female pelvic inflammatory disease, unspecified; N70.93 Salpingitis and oophoritis, unspecified; D64.9 Anemia, unspecified; E11.9 Type 2 diabetes mellitus without complications; E66.9 Obesity, unspecified; E78.00 Pure hypercholesterolemia, unspecified; E78.5 Hyperlipidemia, unspecified; E88.81 Metabolic syndrome and other insulin resistance; I10 Essential (primary) hypertension; K76.0 Fatty (change of) liver, not elsewhere classified; Z68.32 Body mass index [BMI] 32.0-32.9, adult; Z79.4 Long term (current) use of insulin; Z83.3 Family history of diabetes mellitus; Z82.49 Family history of ischemic heart disease and other diseases of the circulatory system
CPT/HCPCS: 36415; 71045; 74177; 76705; 76856; 80048; 80053; 80170; 80202; 81001; 81025; 82948; 83036; 83605; 83690; 84132; 84145; 85025; 85027; 85610; 85730; 86631; 86632; 86850; 86900; 86901; 87040; 87070; 87076; 87426; 87486; 87591; 87797; 88112; 88305; 88341; 88342; A4344; G0378; J0295; J0330; J0500; J0696; J1580; J1815; J1885; J2001; J2175; J2250; J2270; J2405; J2543; J2550; J2704; J2710; J3010; J3370; J3480; J3490; J7030; J7050; J7120; Q9967; U0003